=== PATIENT | male | born 1955 | race Caucasian/White ===

== ENCOUNTER 2016-09-01 10:13 | Emergency (ER) | payer OTHER ==
[2016-09-01] MEDS ORDERED: NITROGLYCERIN SL PRN (10:36)
[2016-09-01] MEDS ORDERED: ASPIRIN PO STA (10:36)
[2016-09-01] MEDS ORDERED: LASIX IV ONE (10:36)
--- NOTE | 2016-09-01 10:44 | PROVIDER DOCUMENTATION ---
HPI-Cardiac General - General Chief Complaint: Edema Stated Complaint: lower leg edema Time Seen by Provider: 09/01/16 10:16 Source: patient, family Allergies/Adverse Reactions: Patient Allergies Allergy/AdvReac Type Severity Reaction Status Date / Time No Known Allergies Allergy Verified 06/02/13 14:53 Home Medications: Home Medication List Medication Instructions Recorded Confirmed Last Taken Type Flavoxate [Urispas] 100 mg PO TID PRN #10 tablet 06/02/13 11/11/15 Unknown Rx Methamphetamine HCl [Desoxyn] 20 mg PO 4XDAY 06/02/13 11/11/15 06/02/13 08:00 History Ciproflox/Dexameth Otic Susp 4 drop OTIC BID #1 bottle 11/11/15 Unknown Rx [Ciprodex Otic Suspension] Clonazepam [Klonopin] 1 mg PO TID 11/11/15 11/11/15 Unknown History Ondansetron HCl [Zofran] 4 mg PO TID #10 tablet 11/11/15 Unknown Rx - History of Present Illness-Cardiac Nature of Presenting Problem: 60 yo WM was transferred from Rehab at request of family. He had triple bypass repair of two valves about 2 weeks ago. Eventually made it back from [place]. In rehab began swelling and having progressive SOB. Denies orthopnea despite being dyspneic while supine on exam. Quality of Pain: reports: none Associated Symptoms: reports: shortness of breath Similar Symptoms Previously?: Yes Recently Seen Here or By Another Healthcare Provider: No Review of Systems - Adult - REVIEW OF SYSTEMS - ADULT Constitutional: reports: weight gain Eyes: reports: no symptoms reported Ears, Nose, Mouth & Throat: reports: no symptoms reported Cardiovascular: reports: edema. denies: irregular heart rate, palpitations, syncope Respiratory: reports: dyspnea on exertion, shortness of breath. denies: wheezing Gastrointestinal: reports: no symptoms reported Genitourinary: reports: no symptoms reported Musculoskeletal: reports: no symptoms reported, muscle weakness Integumentary: reports: no symptoms reported Neurological: reports: no symptoms reported, other (fall yesterday with hematoma on forehead, not seen in er) Psychiatric: reports: emotional problems, other (ON ZYPREXA AND DEPAKOTE FOR PSYCHOTIC SYMPTOMS, DRINKS 'A LOT OF WATER') Endocrine: reports: no symptoms reported Hematologic/Lymphatic: reports: no symptoms reported Allergic/Immunologic: reports: no symptoms reported All Other Systems: Reviewed and Negative Past History - Adult - PAST MEDICAL HISTORY-ADULT Review of Records: reports: Old Records Reviewed, Nursing Assessment Review, Social history reviewed & non-contributory. Major Childhood Illnesses: reports: denies history Cardiovascular: reports: CAD, CHF, heart valve problem, murmur. denies: A-Fib, [place], palpitations Respiratory: reports: denies history Gastrointestinal: reports: denies history Obstetrical/Gynecological: reports: denies history Genitourinary: reports: denies history Musculoskeletal: reports: denies history Neurological: reports: denies history Psychiatric: reports: anxiety, bipolar, psychiatric problems Endocrine/Immune: reports: denies history Other Conditions: reports: denies history - PRIOR SURGERIES/PROCEDURES Surgical/Procedure History: reports: appendectomy, CABG, cholecystectomy, other (hernia, sleep apnea surgery, VALVE REPAIR) - IMMUNIZATION STATUS Childhood Immunizations: See Nurse Assessment Flu Vaccine: See Nurse Assessment - FAMILY HISTORY Family History: reviewed, not pertinent - SOCIAL HISTORY Smoking: denies Substance Use: none/never Alcohol Use Frequency: never Living Situation: care facility Physical Exam-General - PHYSICAL EXAM-ADULT Initial Vital Signs Reviewed: Yes - CONSTITUTIONAL General Appearance: alert, no apparent distress - EYES Eyes: PERRL/EOMI, pink conjunctivae - HEAD, EARS, NOSE, MOUTH & THROAT HENMT: moist mucous membranes, normal ENT inspection - NECK Neck: full range of motion, supple. negative: carotid bruit - RESPIRATORY Respiratory: no pleuratic chest pain, no respiratory distress, no accessory muscle use, decreased breath sounds. negative: stridor, wheezing, retractions - CARDIOVASCULAR Cardiovascular: regular rate, rhythm, other (3+ EDEMA IN LEGS, 2= IN ARMS) - GASTROINTESTINAL (ABDOMEN) Abdominal Exam: distended, other (SITE FROM PREVIOUS DRAIN NOTED, STITCHES HANGING OUT) - MUSCULOSKELETAL Back Exam: no CVA tenderness Extremity: pedal edema - SKIN Integumentary: normal color, normal turgor - NEUROLOGIC Neurologic: grossly normal, no motor/sensory deficits - PSYCHIATRIC Psych/Mental Status: normal mood/affect, oriented x 3, disheveled. negative: normal thought content Progress - PLAN OF CARE/RESULTS Progress/Plan/Lab Results: Vital Signs Temp Pulse Resp BP Pulse Ox 09/01/16 10:33 96 H 25 H 132/91 96 09/01/16 10:18 97.5 F L 94 H 25 H 132/91 94 L No Known Allergies Allergy (Verified 06/02/13 14:53) Flavoxate [Urispas] 100 mg PO TID PRN #10 tablet 06/02/13 Methamphetamine HCl [Desoxyn] 20 mg PO 4XDAY 06/02/13 Ciproflox/Dexameth Otic Susp [Ciprodex Otic Suspension] 4 drop OTIC BID #1 bottle 11/11/15 Clonazepam [Klonopin] 1 mg PO TID 11/11/15 Ondansetron HCl [Zofran] 4 mg PO TID #10 tablet 11/11/15 I&O 08/31/16 09/01/16 09/02/16 07:59 07:59 07:59 Output Total 20 Balance -20 Laboratory 09/01/16 09/01/16 09/01/16 10:30 10:30 10:30 WBC RBC Hgb Hct MCV MCH MCHC RDW Std Deviation Plt Count MPV Immature Gran % (Auto) Neut % (Auto) Lymph % (Auto) [place] % (Auto) Eos % (Auto) Baso % (Auto) Immature Gran # (Auto) Neut # (Auto) Lymph # (Auto) [place] # (Auto) Eos # (Auto) Baso # (Auto) PT 11.5 INR 1.08 PTT (Actin FS) 26.2 D-Dimer Sodium Potassium Chloride Carbon Dioxide Anion Gap BUN Creatinine Estimated GFR/1.73 m2 BUN/Creatinine Ratio Glucose POC Glucose Calculated Osmolality Calcium Magnesium Total Bilirubin AST ALT Alkaline Phosphatase Creatine Kinase Troponin T 0.023 Cli-Q-Lhgkcroodlk Pept 1063 H Total Protein Albumin Globulin Albumin/Globulin Ratio 09/01/16 09/01/16 09/01/16 10:30 10:30 10:30 WBC 6.14 RBC 3.47 L Hgb 10.5 L Hct 34.3 L MCV 98.8 MCH 30.3 MCHC 30.6 L RDW Std Deviation 16.7 H Plt Count 211 MPV 9.9 Immature Gran % (Auto) 0.0 Neut % (Auto) 54.9 Lymph % (Auto) 19.2 L [place] % (Auto) 21.0 H Eos % (Auto) 4.2 Baso % (Auto) 0.7 Immature Gran # (Auto) 0.00 Neut # (Auto) 3.37 Lymph # (Auto) 1.18 L [place] # (Auto) 1.29 H Eos # (Auto) 0.26 Baso # (Auto) 0.04 PT INR PTT (Actin FS) D-Dimer 12.37 H Sodium 138 Potassium 3.8 Chloride 101 Carbon Dioxide 31 Anion Gap 6 BUN 11 Creatinine 0.8 Estimated GFR/1.73 m2 > 60 BUN/Creatinine Ratio 14 Glucose 162 H POC Glucose Calculated Osmolality 279 Calcium 7.5 L Magnesium 1.8 Total Bilirubin 0.47 AST 58 H ALT 39 Alkaline Phosphatase 186 H Creatine Kinase 91 Troponin T Cwx-G-Qmcodqqbknt Pept Total Protein 6.3 Albumin 2.3 L Globulin 4.0 Albumin/Globulin Ratio 0.6 09/01/16 10:16 WBC RBC Hgb Hct MCV MCH MCHC RDW Std Deviation Plt Count MPV Immature Gran % (Auto) Neut % (Auto) Lymph % (Auto) [place] % (Auto) Eos % (Auto) Baso % (Auto) Immature Gran # (Auto) Neut # (Auto) Lymph # (Auto) [place] # (Auto) Eos # (Auto) Baso # (Auto) PT INR PTT (Actin FS) D-Dimer Sodium Potassium Chloride Carbon Dioxide Anion Gap BUN Creatinine Estimated GFR/1.73 m2 BUN/Creatinine Ratio Glucose POC Glucose 217 H Calculated Osmolality Calcium Magnesium Total Bilirubin AST ALT Alkaline Phosphatase Creatine Kinase Troponin T [id number]-O-Lqrmtixucvt Pept Total Protein Albumin Globulin Albumin/Globulin Ratio 1245 Over the course of the last hour, a 40% pneumo was discovered. The patient and family initially expressed a prefernce for local hospitalization but the hospitalist service thought that due to proximity of his surgery and the seriousness of his complications that he should go back to the cardiothoracic surgeon in [place]. Contacts are being attempted now. In the interim I spoke with Ronald Fernandes twice. The decision to put in a chest tube will be somewhat contingent on his transfer status and the overall patient condition. [address] Mccord who accepted on transfer. He expressed a preference to place chest tube prior to transfer. 1420 Dr. Fernandes attempted small caliber chest tube but met resistance, the patient began coughing up blood. He coughed out about a unit of blood. Dr. Fernandes meanwhile transitioned to regular sized chest tube and got an air humphries then secured tube. The patient stopped coughing up blood. His GCS was 15 and his oxygenation was good. The complications were explained to the patient and then to his mother. We discussed this with Dr. Loo's PA. Then [facility] called and spoke with Dr. Fernandes. We were later informed that the ICU beds were on diversion for transfer. I spoke with Dr. Us in the ER about ER to ER transfer at 1440 or so. He was checking on bed and transfer status and told us he would call back. 1455 Dr. Us called back. They are unable to accept on transfer due to 4 patients already being held for ICU. I will speak to family about other options. 1510 [facility] unable to accept 1515 [facility] called. The will talk to CC specialist. 1525 CC specialist at accepted on transfer. I was not able to understand his name during the conversation. - XRAY 1 XRAY Study: Chest Impression: Abnormal, Discussed w/Radiology XRAY Interpretation: 40% Pneumo - CONSULTS/PCP/HOSPITALIST Notification #1 *Consult/PCP/Hospitalist*: fig Time Discussed: 12:30 Reason/Comments: pneumodart Consult Disposition: Will see in ED Departure - Departure Time of Disposition Order: 13:28 DIAGNOSIS: Systolic congestive heart failure with reduced left ventricular function, NYHA class 1, Pneumothorax, left Disposition: [facility] 02 Certified Medical Emergency: Emergent Condition: Serious Referrals: Alana Rock MD [Primary Care Provider] -
--- NOTE | 2016-09-01 11:12 | EKG Report ---
Test Performed on : 09/01/2016 10:46:48 AM Test Reason : Chest Pain Blood Pressure : / mmHG Vent. Rate : 096 BPM Atrial Rate : 096 BPM P-R Int : 152 ms QRS Dur : 096 ms QT Int : 370 ms P-R-T Axes : 028 -45 163 degrees QTc Int : 467 ms Sinus rhythm. with occasional premature ventricular complexes. Left axis deviation Septal infarct , age undetermined T wave abnormality, consider lateral ischemia Abnormal ECG When compared with ECG of 28-AUG-2009 17:44, premature ventricular complexes. are now present Septal infarct is now present Inverted T waves have replaced nonspecific T wave abnormality in Lateral leads Unconfirmed Result
--- NOTE | 2016-09-01 11:20 | ED EKG INTERP ---
EKG Interpretation - EKG Time of EKG reading by physician:: 10:46 EKG Read and Signed by:: Jamaal Acosta EKG Interpretation (*Must complete 3 of following elements*): Abnormal (septal infarct age undetermined; T wave abnormality consider lateral ischemia) Rate: 96 Rhythm: sinus with occ pvc [place]: left QRS: normal Attestation - Scribe Verification/Attestation Scribe:: Neri Suarez Acting as Scribe for:: Jamaal Acosta Scribe documention review:: This chart was documented by a scribe and accurately reflects the service the provider performed and the decisions made by the provider.
[2016-09-01 11:22] LABS: BASO% 0.7 % (0.0-0.8); EOS# 0.26 X1000 (0.0-0.7); EOS% 4.2 % (0.0-10.0); HEMATOCRIT 34.3 % (42.0-52.0); HEMOGLOBIN 10.5 g/dL (14.0-18.0); LYMPH# 1.18 X1000 (1.2-3.4); LYMPH% 19.2 % (20.5-51.1); MANUAL DIFF NEEDED? NO; MCH 30.3 PG (27-31); MCHC 30.6 g/dL (33-37); MCV 98.8 FL (81-99); MONO# 1.29 X1000 (0.11-0.59); MPV 9.9 FL (7.4-10.4); NEUT% 54.9 % (42.2-75.2); PLT 211 X1000 (130-400); RBC 3.47 XMIL (4.7-6.1)
[2016-09-01 11:34] LABS: INR 1.08; PROTIME 11.5 Seconds (9.2-11.7); PTT 26.2 Seconds (22.0-36.0)
--- NOTE | 2016-09-01 11:35 | Diag Imaging Result Document ---
PROCEDURE NAME: CHEST-1 VIEW - 09/01/2016 SINGLE FRONTAL RADIOGRAPH OF THE CHEST: COMPARISON: 09/26/2015. FINDINGS: Inspiration is suboptimal. There is a prominent pneumothorax at the periphery of the left lung extending from the upper lung zone to the left lung base. It occupies approximately 30- 40% of the left hemithorax. There is increased opacity at the left lower lung zone obscuring the heart border, likely representing atelectasis. The right lung is grossly clear. However, there is a small linear lucency at the right lung apex. Although much more doubtful, I suppose it is possible that there is a very small right apical pneumothorax as well. A PA radiograph with inspiration and expiration could help determine this. There are new pericardial clips and sternotomy wires indicating likely CABG during the interval. There is stable cardiomegaly. IMPRESSION: 1. Lucencies at the periphery of the left lung and possibly at the right lung apex that are worrisome for pneumothoraces. 2. Opacity at the left lung base probably representing atelectasis. Superimposed infection cannot completely be excluded. Followup PA and lateral radiograph is recommended. 3. This potentially critical result was reported to Dr. Jamaal Acosta in the emergency department at 1117 hours. [facility]
[2016-09-01 11:44] LABS: AGAP 6; ALBUMIN 2.3 g/dL (3.5-5.0); ALKALINE PHOSPHATASE 186 U/L (32-122); BUN 11 mg/dL (8-22); CALCIUM 7.5 mg/dL (8.8-10.2); CHLORIDE 101 mmol/L (98-107); CK PROFILE 91 U/L (24-204); COSMO 279; GOT 58 U/L (10-34); GPT 39 U/L (10-44); MAGNESIUM 1.8 mg/dL (1.5-2.7); POTASSIUM 3.8 mmol/L (3.5-5.1); SODIUM 138 mmol/L (136-145); TCO2 31 mmol/L (25-35); TOTAL BILIRUBIN 0.47 mg/dL (0.20-1.00); TOTAL PROTEIN 6.3 g/dL (6.3-8.3)
--- NOTE | 2016-09-01 13:04 | Diag Imaging Result Document ---
PROCEDURE NAME: HEAD W/O CONTRAST - 09/01/2016 CT HEAD WITHOUT CONTRAST: COMPARISON: None available. FINDINGS: There is very minimal patchy low attenuation in the periventricular white matter on the right and in the left pontine white matter suggesting very minimal microangiopathy most likely. There is no definite acute infarct given the limitations of CT versus MRI. There is no discrete intracranial mass, mass effect, or intracranial hemorrhage. There is mild right sphenoid and right maxillary sinus mucosal thickening. Surrounding soft tissues and bony structures are essentially unremarkable, otherwise. Calvaria is intact. IMPRESSION: Suggestion of trace white matter microangiopathy in the periventricular white matter on the right and pontine white matter on the left. No definite acute intracranial pathology.
[2016-09-01] MEDS ORDERED: NS 1,000 ML ONE (13:48)
[2016-09-01 15:44] LABS: ALLEN TEST YES; BE 6.6 mmoll (-3.0-3.0); BLOOD TYPE ARTERIAL; DRAW SITE R RADIAL; METHB 1.6 % (0.0-1.5); O2(CT) 15.9 mL/dL (15.0-23.0); PO2(98.6) 256 mmHg (60-100); SAMPLE BLOOD; SAO2 99.7 % (95.0-100.0); THB 11.3 g/dL (11.5-17.4); pH(98.6) 7.33 (7.35-7.45)
[2016-09-01 15:45] LABS: MODALITY NRB
[2016-09-01 15:47] LABS: PCO2(98.6) 65 mmHg (35-45)
--- NOTE | 2016-09-01 16:53 | Diag Imaging Result Document ---
PROCEDURE NAME: CHEST-1 VIEW - 09/01/2016 AP PORTABLE CHEST: TIME: 14:04 hours FINDINGS: There is a chest tube in the left hemithorax. The pneumothorax, which was demonstrated on the previous at 11:06 hours is no longer present. There is some volume loss with shift of the mediastinum to the left. There is opacification of the left lower lobe. IMPRESSION: Atelectasis versus pneumonia left lower lobe. Resolution of left pneumothorax. The findings were discussed with Dr. Fernandes by telephone at 14:15 hours.
[2016-09-01 16:54] VITALS: BP 121/84
--- NOTE | 2016-09-01 18:21 | OPERATIVE NOTE ---
PROCEDURE DATE: 09/01/2016 PREOPERATIVE DIAGNOSES: 1. Left sided pneumothorax. 2. Recent coronary artery bypass graft. POSTOPERATIVE DIAGNOSES: 1. Left sided pneumothorax. 2. Recent coronary artery bypass graft. PROCEDURE: Left chest tube placement. SURGEON: Isac Fernandes. STAINED GLASS JOINER: None. ANESTHESIA: Local administered by the surgeon. FINDINGS: Approximately 50 mL of blood was evacuated from the chest. Postprocedural chest x-ray showed resolution of the pneumothorax with the chest tube likely in a fissure. BRIEF HISTORY: The patient is a 60-year-old male who had a coronary artery bypass graft done at an outside facility. He presented with shortness of breath and congestive heart failure. He was noted on chest x-ray to have a 40% pneumothorax. It did have what appeared to be a rind and some loculations. Given his respiratory distress and his tachypnea we elected to place a chest tube. The risks, benefits, alternatives were discussed with him and his mother. They voiced understanding and wished to proceed with the procedure. DESCRIPTION OF PROCEDURE: After informed consent was obtained, the patient remained in his ER bed. The left chest was confirmed by the patient, was prepped and draped in a sterile fashion. Given the landmarks noted on chest x-ray we elected to proceed with our chest tube placement in the 4th intercostal space just above the nipple in the anterior axillary line. We prepped and draped this area in a sterile fashion. Used local anesthetic to anesthetize the skin. We made a small stab incision. Initially tried to place an 8-Niuean chest tube in the area. Upon inserting into the cavity the patient started having hemoptysis. We also drained a significant amount of blood. Given this I elected to convert to a 28-Niuean chest tube. I incised the area more, bluntly dissected over the rib to enter into the thorax, placed a chest tube in place, encountered blood. Secured it in place, connected it to the atrium. Placed a sterile dressing. The patient had a followup chest x-ray that showed the chest tube in place. Given his overall medical comorbidities he was being transferred to [place] for definitive treatment. I did discuss over the phone with his receiving cardiothoracic surgeon. At the time the patient tolerated procedure well. His vital signs remained stable. He did not have any more significant hemoptysis besides the one initial encounter. He remained able to protect his airway. Therefore, we did not intubate him at that time.
== END 2016-09-01 16:45 | disposition short-term general hospital (02) ==
LOC: EDBD → ED 10:13
DX: J93.9 Pneumothorax, unspecified (principal); I50.20 Unspecified systolic (congestive) heart failure; R94.31 Abnormal electrocardiogram [ECG] [EKG]; R60.0 Localized edema; R06.02 Shortness of breath; R63.5 Abnormal weight gain; R06.00 Dyspnea, unspecified; S00.83XA Contusion of other part of head, initial encounter; R06.82 Tachypnea, not elsewhere classified; I25.10 Atherosclerotic heart disease of native coronary artery without angina pectoris; I50.9 Heart failure, unspecified; F41.9 Anxiety disorder, unspecified; F31.9 Bipolar disorder, unspecified; Z79.899 Other long term (current) drug therapy; Z95.1 Presence of aortocoronary bypass graft; W19.XXXA Unspecified fall, initial encounter
CPT/HCPCS: 70450; 71010; 80053; 82550; 82805; 82948; 83735; 83880; 84484; 85025; 85379; 85610; 85730; 93005; J1940; J7030